=== PATIENT | male | born 1975 | race Caucasian/White ===

== ENCOUNTER 2017-08-10 15:38 | Emergency (ER) | payer OTHER ==
[2017-08-10] MEDS: ONDANSETRON (ODT) 4 MG TAB ODT ×3 (17:11→21:41)
[2017-08-10] MEDS: DEXAMETHASONE 10 MG/ML 1 ML INJ IM (17:11)
[2017-08-10] MEDS: HYDROmorphONE 2 MG/ML SYG IM (17:11)
[2017-08-10 19:13] LABS: ADD MAN DIFF? NO
[2017-08-10] MEDS: IPRATROPIUM (NEB) 0.5 MG/2.5 ML AMP NEB (19:13)
[2017-08-10] MEDS: ALBUTEROL 0.083% (NEB) 2.5 MG/3 ML AMP NEB (19:13)
[2017-08-10 19:16] LABS: BASOPHILS % 0.2 % (0.0-2.0); EOSINOPHILS # 0.1 10^3/ul (0.0-0.5); HEMATOCRIT 39.2 % (42.0-52.0); HEMOGLOBIN 13.4 g/dl (14.0-18.0); LYMPHOCYTES # 1.2 10^3/ul (0.8-2.9); LYMPHOCYTES % 22.6 % (15.0-51.0); MEAN CORPUSCULAR HEMOGLOBIN 33.3 pg (29.0-33.0); MEAN CORPUSCULAR HGB CONC 34.2 g/dl (32.0-37.0); MEAN CORPUSCULAR VOLUME 97.3 fl (82.0-101.0); MEAN PLATELET VOLUME 10.2 fl (7.4-10.4); MONOCYTE # 0.2 10^3/ul (0.3-0.9); MONOCYTES % 4.2 % (0.0-11.0); NEUTROPHIL # 3.7 10^3/ul (1.6-7.5); NEUTROPHILS % 71.6 % (39.0-77.0); PLATELET COUNT 121 10^3/UL (140-415); POSITIVE DIFF @See below; RED BLOOD COUNT 4.03 10^6/ul (4.70-6.10); RED CELL DISTRIBUTION WIDTH 12.5 % (11.5-14.5)
[2017-08-10 19:16] LABS: WHITE BLOOD COUNT 5.2 10^3/ul (4.8-10.8)
[2017-08-10 19:46] LABS: ALANINE AMINOTRANSFERASE 48 IU/L (13-69); ALBUMIN 3.9 g/dl (3.3-4.9); ALBUMIN/GLOBULIN RATIO 1.39; ALKALINE PHOSPHATASE 74 IU/L (42-121); ANION GAP 14 (8-16); ASPARTATE AMINO TRANSFERASE 41 IU/L (15-46); BILIRUBIN,INDIRECT 0.7 mg/dl (0-1.1); BILIRUBIN,TOTAL 0.7 mg/dl (0.2-1.3); BLOOD UREA NITROGEN 19 mg/dl (7-20); CALCIUM 8.9 mg/dl (8.4-10.2); CARBON DIOXIDE 30 mmol/L (21-31); CHLORIDE 100 mmol/L (97-110); CREATININE 0.74 mg/dl (0.61-1.24); GLUCOSE 91 mg/dl (70-220); POTASSIUM 4.4 mmol/L (3.5-5.1); SODIUM 140 mmol/L (135-144); TOTAL PROTEIN 6.7 g/dl (6.1-8.1)
[2017-08-10 19:57] LABS: TROPONIN-I < 0.012 ng/ml (0.00-0.12)
[2017-08-10] MEDS: KETOROLAC 30 MG INJ IV (20:03)
[2017-08-10] MEDS: DIPHENHYDRAMINE 50 MG CAP PO (20:18)
[2017-08-10] MEDS: LORAZEPAM 1 MG TAB PO (20:19)
[2017-08-10] MEDS: MECLIZINE 12.5 MG TAB PO (21:54)
== END 2017-08-10 21:50 | disposition home or self-care (01) ==
LOC: E/R 15:38
DX: J20.9 Acute bronchitis, unspecified (principal); M54.16 Radiculopathy, lumbar region; I10 Essential (primary) hypertension; R40.2142 Coma scale, eyes open, spontaneous, at arrival to emergency department; R40.2252 Coma scale, best verbal response, oriented, at arrival to emergency department; R40.2362 Coma scale, best motor response, obeys commands, at arrival to emergency department; F17.210 Nicotine dependence, cigarettes, uncomplicated
CPT/HCPCS: 36415; 71045; 80053; 84484; 85025; 93005; 94664; 96372; 96374; 99285-25